=== PATIENT | female | born 1965 | race Hispanic/Latino ===

== ENCOUNTER 2018-08-31 20:21 | Observation (INO) | payer OTHER, MEDICARE ==
--- NOTE | 2018-08-31 21:27 | RAD ---
PORTABLE CHEST: History: Mental status change. FINDINGS: Lungs are clear. Heart and mediastinum are unremarkable. IMPRESSION: No acute finding. POS: [facility]
[2018-08-31 21:36] LABS: Acetaminophen Less than 6.0 mcg/mL (10.0-30.0); Alcohol Less than 10 mg/dL (Less than 10); Salicylate Less than 8.0 mg/dL (15.0-30.0)
[2018-08-31 21:38] LABS: CK (CPK) 128 U/L (29-168); Lipase 37 U/L (8-78)
[2018-08-31 22:46] VITALS: BMI 38.4
[2018-09-01] MEDS ORDERED: Dextrose 5% in Water 1,000 ML IV PRN (01:07)
[2018-09-01] MEDS ORDERED: HumaLOG 300 UNITS/3 ML VIAL SC PRN (01:07)
[2018-09-01] MEDS ORDERED: Dextrose 50% Abboject 50 ML SYRINGE SLOW IVP PRN (01:07)
[2018-09-01] MEDS ORDERED: Labetalol HCl 100 MG/20 ML VIAL SLOW IVP PRN (01:07)
[2018-09-01] MEDS ORDERED: Acetaminophen 325 MG TAB PO PRN (01:07)
[2018-09-01] MEDS ORDERED: hydrALAZINE 20 MG/ML VIAL SLOW IVP PRN (01:07)
--- NOTE | 2018-09-01 02:08 | HP ---
PRIMARY CARE PHYSICIAN: Dr. Barney. CHIEF COMPLAINT: Right-sided weakness and slurred speech. HISTORY OF PRESENT ILLNESS: The patient is a 52-year-old female with a past medical history of diabetes, CKD stage 3, hypertension, and hyperlipidemia, who presents to the emergency department for right-sided weakness for the past 3 to 4 days. The patient reported that her symptoms were getting worse and that she noticed to have slurred speech this morning and that is why she came to the ER. The patient reports that she has been taking her medications. The patient denies any history of previous known stroke. The patient has a family history of stroke. The patient reports that her symptoms have improved since she has been in the ER. Otherwise, she does not have any kind of complaint at this point. PAST MEDICAL HISTORY: Diabetes, hypertension, neuropathy, GERD, possible history of mini-stroke, hyperlipidemia, musculoskeletal pain. SURGICAL HISTORY: Hysterectomy, tonsillectomy, carpal tunnel surgery. PSYCHIATRIC HISTORY: Depression. SOCIAL HISTORY: The patient denies smoking. The patient quit more than 10 years ago. Denies alcohol or drug use. FAMILY HISTORY: Positive for coronary artery disease. ALLERGIES: LEVAQUIN. CURRENT MEDICATIONS: Include, 1. Pantoprazole. 2. Fluoxetine. 3. Gabapentin. 4. Metformin. 5. Amitriptyline. 6. Simvastatin. 7. Losartan. 8. Insulin. 9. Cilostazol. 10. Glimepiride. 11. Pioglitazone. 12. Loratadine. REVIEW OF SYSTEMS: A 10-point review of systems negative other than mentioned in the HPI. PHYSICAL EXAMINATION: VITAL SIGNS: Blood pressure 163/85, pulse 85, respiration rate 20, temperature 97.8, and O2 saturation 97% on room air. GENERAL: The patient is alert and cooperative. HEAD: Atraumatic. EAR, NOSE, AND THROAT: No drainage or exudate or bleeding noted. EYES: Extraocular movement intact. NECK: No lymph adenopathy noted. CARDIOVASCULAR: Regular rate and rhythm. No murmurs, rubs, or gallops noted. PULMONARY: Clear bilaterally. No wheezes. ABDOMEN: Soft and nontender. Bowel sounds positive. EXTREMITIES: Lower extremities, no edema noted. MUSCULOSKELETAL: Equal strength bilaterally. NEURO: Cranial nerve II through XII grossly intact. The patient is alert. Sensation fully intact. Strength on all 4 extremities is 5/5. SKIN: No rashes noted. LABORATORY DATA: WBC 13.5, hemoglobin 12.8, hematocrit 37.8, platelet 437. Sodium 139, potassium 3.6, chloride 99, bicarb 23, BUN 22, creatinine 1.55, glucose 119. CT of the head negative for acute CVA. Chest x-ray is also negative for any acute cardiopulmonary abnormalities. ASSESSMENT: 1. Suspected transient ischemic attack. 2. Leukocytosis. 3. Elevated creatinine. 4. Hypertension. 5. Diabetes. 6. Hyperlipidemia. PLAN: The patient is admitted for TIA workup. So far, imaging studies have been negative. Neurology consult placed in the morning. MRI of the brain, echocardiogram, and ultrasound of carotid, and PT, OT, and speech therapy consult ordered. The patient is noted to be tolerating p.o. diet well. Therefore, we will continue diet. If the patient developed dysphagia, we will make patient n.p.o. The patient has fall precautions. The patient is already on simvastatin. The patient was given aspirin in the ER. We will start baby aspirin. The patient's creatinine is 1.55. This is elevated from her last baseline. However, the patient's baseline is unknown as her last labs were from 2 years ago. We will follow up labs at this point. This may be stable as the patient seems to have history of CKD stage 3. Hypertension. We will hold the patient's home medication at this point. We will allow for permissive hypertension for blood pressure regular than 220/110. We will give medications if needed. Diabetes. Continue sliding scale insulin. We will continue home insulin. We will hold home p.o. medications. Hyperlipidemia. Continue home statin. Lipid panel ordered. The patient is full code. Medical power of patent attorney, . DVT prophylaxis addressed. Job ID: [id number]
[2018-09-01 05:55] LABS: #Basophils 0.1 thou/uL (0.0-0.2); #Eosinphils 0.6 thou/uL (0.0-0.7); #Monocytes 0.7 thou/uL (0.11-0.59); #Neutrophils 5.4 thou/uL (1.40-6.50); %Basophils 1.3 % (0.0-1.0); %Eosinophils 5.8 % (0.0-10.0); %Lymphocytes 30.2 % (21.0-51.0); %Monocytes 7.2 % (0.0-10.0); %Neutrophils 55.5 % (42.0-75.0); Hemoglobin 12.6 g/dL (12.0-16.0); Mean Corpuscular HGB CONC 33.8 g/dL (32.0-36.0); Mean Corpuscular Hemoglobin 32.9 pg (27.0-31.0); Mean Corpuscular Volume 97.2 fL (78.0-98.0); Mean Platelet Volume 7.5 fL (7.4-10.4); Platelet Count 387 thou/uL (130-400); RBC Distribution Width 11.7 % (11.5-14.5); Red Blood Cell (RBC) Count 3.85 mill/uL (4.20-5.40); White Blood Cell (WBC) Count 9.8 thou/uL (4.8-10.8)
[2018-09-01 06:09] LABS: Anion Gap 12 mmol/L (10-20); BUN (Urea Nitrogen) 16 mg/dL (9.8-20.1); Calc. Creatinine Clearance 90 mL/min (70-130); Calcium 8.8 mg/dL (7.8-10.44); Carbon Dioxide 28 mmol/L (22-29); Cardiac Risk 2.7 (Less than 4.5); Chloride 100 mmol/L (98-107); Cholesterol 109 mg/dl (< 200 Desired); Estimated GFR-MDRD 51; Glucose 85 mg/dL (70-105); HDL Cholesterol 40 mg/dL (>60 Neg Risk); LDL Cholesterol, Calculated 41 mg/dL; Potassium 3.2 mmol/L (3.5-5.1); Sodium 137 mmol/L (136-145); Triglycerides 142 mg/dL (Less than 150)
--- NOTE | 2018-09-01 08:41 | ULT ---
CAROTID DUPLEX SONOGRAM: HISTORY: TIA. Vascular disease. FINDINGS: RIGHT: Color and spectral Doppler evaluation: A peak systolic velocity of 98 cm per second and an ICA/CCA r atio of 1.1 suggests no hemodynamically significant stenosis within the extracranial right ICA. Ante grade flow within the vertebral artery. LEFT: Color and spectral Doppler evaluation: A peak systolic velocity of 77 cm per second and an ICA/CCA r atio of 0.6 suggests no hemodynamically significant stenosis within the extracranial left ICA. Anteg rade flow within the vertebral artery. IMPRESSION: No significant plaque visualized. No sonographic evidence of significant extracranial internal carot id artery stenosis. POS: [facility]
[2018-09-01] MEDS ORDERED: Cilostazol 100 MG TAB PO SCH (09:00)
[2018-09-01] MEDS ORDERED: Insulin Glargine 25 UNITS in Pre-Filled Syringe 1 EACH SC SCH (09:00)
[2018-09-01] MEDS ORDERED: MULTIVITAMIN WITH MINERALS PO SCH (09:00)
[2018-09-01] MEDS ORDERED: Gabapentin 300 MG CAP PO SCH ×2 (09:00→21:00)
[2018-09-01] MEDS ORDERED: Multivit, Therapeutic 1 TAB PO SCH (09:00)
[2018-09-01] MEDS ORDERED: FLUoxetine HCl 20 MG CAP PO SCH (09:00)
[2018-09-01] MEDS ORDERED: Non-Formulary Item 1 EACH (Insulin Glargine,Hum.Rec.Anlog [Basaglar Kwikpen U-100] 25 UNI SQ SCH (09:00)
[2018-09-01] MEDS ORDERED: Lactinex Tablet PO SCH (09:00)
[2018-09-01] MEDS ORDERED: CINNAMON BARK 1000 MG PO SCH (09:00)
[2018-09-01] MEDS ORDERED: CRANBERRY FRUIT EXTRACT PO SCH (09:00)
[2018-09-01] MEDS ORDERED: Enoxaparin Sodium 40 MG/0.4 ML SYRINGE SC SCH (09:00)
[2018-09-01] MEDS ORDERED: VITAMINS A AND D PO SCH (09:00)
[2018-09-01] MEDS ORDERED: Aspirin 81 mg Enteric Coated Tablet PO SCH (09:00)
--- NOTE | 2018-09-01 11:29 | MRI ---
MRI BRAIN WITHOUT CONTRAST: 09/01/2018 HISTORY: Slurred speech with generalized weakness. Evaluate for acute infarction. COMPARISON: 05/16/2016 TECHNIQUE: Multiplanar, multisequence MR imaging of the brain provided without contrast. FINDINGS: The diffusion-weighted imaging demonstrates no evidence for acute infarction. The axial gradient ech o imaging demonstrates no evidence for intracranial hemorrhage. There is a round, T2 hyperintense lesion associated with the ventral aspect of the parotid gland, inf eriorly, on the right. This lesion measures 1.3 cm in AP dimension, stable when compared to prior br ain MRI performed on 05/16/2016. Arterial flow voids at the axial level of the skull base appear kurt ssly unremarkable on the T2 weighted imaging. There is no midline shift, mass effect, or ventricular enlargement noted. Regional bone marrow signal intensity appears within normal limits. IMPRESSION: 1. No magnetic resonance evidence for intracranial hemorrhage or acute infarction. 2. Nonspecific T2 hyperintense lesion within the anterior aspect of the superficial lobe, right paro tid gland. This may represent a node or a parotid neoplasm. Recommend further evaluation via follow -up CT examination of the neck with intravenous contrast. CODE T POS: [facility]
--- NOTE | 2018-09-01 15:56 | PDOC.PN ---
- Subjective Encounter Start Date: 09/01/18 Encounter Start Time: 11:45 Ms. Valenzuela was seen today in follow-up of wekaness and slurred speech. She says she feels much better now, and is back to her baseline. She says she was exhausted yesterday, and believes this may have contributed to her symptoms. - Objective Resuscitation Status - Order Detail: 09/01/18 01:07 Resuscitation Status Routine Resuscitation Status: FULL: Full Resuscitation MAR Reviewed: Yes Vital Signs & Weight: Vital Signs (12 hours) Temp Pulse Pulse Pulse Resp BP BP 09/01/18 11:50 98.8 F 82 18 09/01/18 09:10 89 96 122/88 113/82 09/01/18 08:00 98.8 F 80 18 09/01/18 04:00 98.1 F 80 18 BP Pulse Ox 09/01/18 11:50 152/85 H 96 09/01/18 09:10 09/01/18 08:00 135/85 97 09/01/18 04:00 129/92 H 97 Weight Weight 217 lb 1.6 oz I&O: 08/31/18 09/01/18 09/02/18 06:59 06:59 06:59 Intake Total 480 600 Balance 480 600 Result Diagrams: 09/01/18 05:26 09/01/18 05:25 Additional Labs: Accuchecks 09/01/18 09/01/18 10:39 05:46 POC Glucose 258 H 85 Phys Exam - Physical Examination HEENT: PERRLA Respiratory: no wheezing, no rales, no rhonchi Cardiovascular: RRR, no significant murmur, no rub Gastrointestinal: soft, non-tender, no distention, positive bowel sounds Musculoskeletal: no edema, pulses present Neurological: non-focal, moves all 4 limbs Psychiatric: normal affect, A&O x 3 Dx/Plan (1) Slurred speech Code(s): R47.81 - SLURRED SPEECH Status: Acute (2) Benign hypertension Code(s): I10 - ESSENTIAL (PRIMARY) HYPERTENSION Status: Chronic (3) Diabetes mellitus Code(s): E11.9 - TYPE 2 DIABETES MELLITUS WITHOUT COMPLICATIONS Status: Chronic (4) Hyperlipidemia Code(s): E78.5 - HYPERLIPIDEMIA, UNSPECIFIED Status: Chronic - Plan * Slurred speech and weakness- suspected TIA- however carotid doppler and Echo are essentially negative. There was atrial fibrillation noted on telemetry, and her lipid panel ( LDL) is at goal. She is on an aspirin a day. Will await Neurology recommendations. * DM-.blood glucose is stable- will check a HGBA1c * HTN- blood pressure is stable
[2018-09-01 16:24] VITALS: BP 126/70; TEMP 97.4
[2018-09-01] MEDS ORDERED: Amitriptyline HCl 25 MG TAB PO SCH (21:00)
[2018-09-01] MEDS ORDERED: Famotidine 20 MG TAB PO SCH (21:00)
[2018-09-01] MEDS ORDERED: Simvastatin 40 MG TAB PO SCH (21:00)
--- NOTE | 2018-09-01 23:32 | CON ---
DATE OF CONSULTATION: 09/01/2018 CONSULTING PHYSICIAN: Hospitalist Service. IMPRESSION: Transient ischemic attack versus complex migraine. PLAN: The patient will be discharged home on aspirin. HISTORY OF PRESENT ILLNESS: Ms. Valenzuela is a 52-year-old white female with a past history of migraine headaches. She has had ocular migraines for a number of years. She was experiencing a 3-day long right-sided headache when she was talking to her family on the phone. She suddenly had an episode where she had trouble getting words out, dysarthric, but more as she described garbled incoherent words. This went on for about 20 minutes to the best of her knowledge. Her symptoms resolved and she came into the hospital for evaluation. She had an MRI of the brain done, which was normal. Carotid ultrasound shows no significant problems. She has not had any further symptoms. Her headache has resolved. She feels much better than she did prior to admission. PAST MEDICAL HISTORY: Reflux, depression, hyperlipidemia, hypertension, diabetes, and carpal tunnel. MEDICATIONS: Medication list was reviewed which included a statin. ALLERGIES: LEVOFLOXACIN. SOCIAL HISTORY: No ongoing alcohol or drug use. She is a former smoker. FAMILY HISTORY: Coronary artery disease. REVIEW OF SYSTEMS: 10-system review of systems was otherwise negative. PHYSICAL EXAMINATION: GENERAL: She is a somewhat overweight, middle-aged woman, in no acute distress. VITAL SIGNS: Blood pressure 134/89, pulse 84, respirations 18, temperature 97.8. HEENT: Pupils equal and reactive. Conjunctiva clear. Oropharynx clear. NECK: Supple. No lymphadenopathy. EXTREMITIES: No cyanosis, clubbing, or edema. NEUROLOGIC: She is alert and appropriate. Her speech is fluent and clear. Cranial nerves were intact. Motor exam showed symmetric strength. There is no fix or drift. She walk independently. No abnormal movements were seen. EKG shows a sinus rhythm. Echocardiogram is pending. SUMMARY: This is a middle-aged woman with history of migraine, who had a prolonged headache prior to transient aphasia, suspect is most likely migraine in origin. I would be happy to follow up with her as an outpatient. Job ID: [id number]
--- NOTE | 2018-09-02 01:39 | DIS ---
DATE OF ADMISSION: 08/31/2018 DATE OF DISCHARGE: 09/01/2018 PRIMARY CARE PHYSICIAN: Dr. Brittanie Mora. DISCHARGE DISPOSITION: Home. DISCHARGE DIAGNOSES: 1. Slurred speech, probable migraine. 2. Hypertension. 3. Diabetes mellitus type 2. 4. Obesity. 5. Hyperlipidemia. DISCHARGE MEDICATIONS: There were no changes in her medication. She is to continue, 1. Simvastatin 40 mg at bedtime. 2. Vitamin A and D one tablet daily. 3. Triamterene-hydrochlorothiazide 75/50 one tablet daily. 4. Actos 15 mg a day. 5. Protonix 40 mg daily. 6. Vitamin with minerals to hair, skin, and nails, 5000 mcg daily. 7. Multivitamin once a day. 8. Metformin 1000 mg twice daily. 9. Cozaar 25 mg daily. 10. Lactobacillus 2 capsules daily. 11. Lantus insulin 25 units twice a day. 12. Amaryl 4 mg twice daily. 13. Gabapentin 300 mg daily and 600 mg at bedtime. 14. Fluoxetine 60 mg daily. 15. Cranberry extract 1500 mg daily. 16. Cinnamon bark 1000 mg twice a day. 17. Cilostazol 50 mg twice a day. 18. Amitriptyline 50 mg at bedtime. PROCEDURES DONE DURING THE ADMISSION: The patient had an MRI of the brain, which was negative for acute infarct or hemorrhage. There was an area of some nonspecific T2 hyperdense lesion in the anterior superior lobe of the right parotid gland and neoplasm could not be ruled out. The patient had bilateral carotid Dopplers, which were negative for any flow-limiting disease. The patient also had an echocardiogram which demonstrated an ejection fraction of 55% to 60%. There was some impaired relaxation compatible with diastolic dysfunction. There was no thrombus seen. CODE STATUS: Full code. ALLERGIES: LEVOFLOXACIN. HOSPITAL COURSE: Ms. Valenzuela is a very pleasant 52-year-old female who presented to the emergency room with complaints of slurred speech and some right-sided weakness. These symptoms did not last long and resolved completely. She does admit that she has been extremely exhausted lately. She was placed in observation due to concerns for possible TIA. MRI was negative as well as carotid Doppler and echo was significant for diastolic dysfunction. There was no evidence of atrial fibrillation on telemetry and her LDL level was actually well at goal at 41 mg/dL. The patient was seen by our neurologist and it was felt that her symptoms did not represent a TIA, but in fact was more consistent with a migraine headache, and as such, she is being discharged home and to have close outpatient followup. As mentioned, her MRI showed an area that was suspicious for possible parotid gland malignancy. I did discuss this with the patient prior to discharge and I have asked her to follow this up with her primary care physician. Job ID: [id number]
== END 2018-09-01 17:56 | disposition home or self-care (01) ==
LOC: ERS 20:21 → 2SE 22:02
PROVIDERS: ADMIT Family Medicine; ATTEND Family Medicine
DX: R47.81 Slurred speech (principal); R53.1 Weakness; E78.5 Hyperlipidemia, unspecified; I12.9 Hypertensive chronic kidney disease with stage 1 through stage 4 chronic kidney disease, or unspecified chronic kidney disease; E11.22 Type 2 diabetes mellitus with diabetic chronic kidney disease; N18.3 Chronic kidney disease, stage 3 (moderate); E11.40 Type 2 diabetes mellitus with diabetic neuropathy, unspecified; K21.9 Gastro-esophageal reflux disease without esophagitis; F32.9 Major depressive disorder, single episode, unspecified; G43.909 Migraine, unspecified, not intractable, without status migrainosus; E66.9 Obesity, unspecified; Z68.38 Body mass index [BMI] 38.0-38.9, adult; Z87.891 Personal history of nicotine dependence; Z79.4 Long term (current) use of insulin; Z79.899 Other long term (current) drug therapy; Z88.1 Allergy status to other antibiotic agents
CPT/HCPCS: 36415; 36416; 70551; 71045; 80048; 80061; 80307; 82140; 82550; 83690; 83880; 84443; 84484; 85025; 93005; 93306; 93880; 96372; G0378; J1650; J1825

== ENCOUNTER 2018-10-12 12:59 | Outpatient (CLI) | payer OTHER, MEDICARE ==
--- NOTE | 2018-10-12 14:45 | CT ---
CT neck soft tissues with and without contrast: 10/12/2018 HISTORY: 52-year-old female with right parotid mass found on brain MRI FINDINGS: There is an approximately 1.5 x 1 x 1.4 cm moderately hypodense mass located at the medial superior e dge of the superficial lobe of the right parotid gland, broadly abutting the posterior aspect of the right masseter muscle. It has a density of 19 HU on the precontrast scan, and 27HU on the postcontras t scan. It is uncertain whether or not there is actual enhancement. In retrospect, on a noncontrast b rain CT of 11/05/2008, it was 0.9 x 0.6 cm, but was very inconspicuous on that prior CT. On the recent MRI of 09/01/2018 and 05/16/2016, both of the brain, this mass has long T2 and intermediate to long T1 . The signal characteristics are not typical for lymph node. Otherwise, the rest of the right parotid gland and the entire left parotid gland, are normal, with no abnormal calcifications or ductal ectasia. There is no sialolith. The submandibular, parapharyngeal, retropharyngeal, perivertebral, posterior cervical, good humor vendor, and pharyngeal mucosal, spaces, demo nstrate no major pathology, other than scattered mildly enlarged lymph nodes. These lymph nodes have density that are different from the right parotid lesion. There is moderately heavy atherosclerotic c alcified plaque at the proximal right internal carotid artery, and to a lesser degree proximal left i nternal carotid artery. No definite pathology of larynx or thyroid gland identified. IMPRESSION: 1.) Small, very slow growing, probably benign mass in the superficial lobe of the right parotid gland . This is not consistent with a lymph node. This could either be a benign or low-grade primary paroti d neoplasm such as a small pleomorphic adenoma, or a complex cyst filled with proteinaceous material. Recommend ENT consultation. This may be amenable to fine-needle aspiration biopsy. Ultrasound-guided FNA can be attempted first, but if that is not feasible because of the geometry of this location, th en it should be converted to CT-guided FNA. 2) atherosclerotic disease of internal carotid arteries.
[2018-10-12] MEDS ORDERED: Iopamidol 370 76% 50 ML VIAL FS ONE (14:47)
== END 2018-10-12 13:00 | disposition home or self-care (01) ==
LOC: CT 12:59
PROVIDERS: ATTEND Family Medicine
DX: K11.8 Other diseases of salivary glands (principal); I65.23 Occlusion and stenosis of bilateral carotid arteries
CPT/HCPCS: 70492; 82565